=== PATIENT | male | born 1960 | race Caucasian/White ===

== ENCOUNTER 2017-01-21 06:13 | Inpatient (IN) | payer BC ==
[2017-01-21] MEDS ORDERED: LR 1,000 ML IV ONE (06:36)
[2017-01-21] MEDS ORDERED: LIDOCAINE 1% 5 ML SDV ID PRN (06:36)
[2017-01-21] MEDS ORDERED: fentaNYL 250 MCG/5 ML INJ ONE (06:59)
[2017-01-21] MEDS ORDERED: PROPOFOL 200 MG/20 ML VIAL ONE ×2 (07:00)
[2017-01-21] MEDS ORDERED: cefOXitin SODIUM 1 GM in D5W 50 ML IV ONE (07:00)
[2017-01-21] MEDS ORDERED: BUPIVACAINE 0.5% 30 ML SDV ONE (07:06)
[2017-01-21] MEDS ORDERED: MIDAZOLAM 2 MG/2 ML VIAL ONE (07:28)
[2017-01-21] MEDS ORDERED: ONDANSETRON 4 MG/2 ML VIAL IVP PRN (11:52)
[2017-01-21] MEDS ORDERED: HYDROmorphONE/DILAUDID 1 MG/ML SYR IVP PRN (11:53)
[2017-01-21] MEDS: cefOXitin SODIUM 1 GM in D5W 50 ML IV SCH ×2 (14:01→20:01)
[2017-01-21] MEDS: LR 1,000 ML IV SCH ×2 (14:01→20:02)
--- NOTE | 2017-01-21 16:37 | POSTOPPROG ---
Post Op Note Date of Operation: 01/21/17 Surgeon: Rian Melo Ammunition Specialist: Dr. Borges Pre-op Diagnosis: Diverticulitis Post-op Diagnosis: Same Procedure: Robotic LAR Inf/Abcess present in the surg proc area at time of surgery?: No EBL: Minimal
[2017-01-22] MEDS: cefOXitin SODIUM 1 GM in D5W 50 ML IV SCH ×2 (03:13→08:27)
[2017-01-22 05:06] LABS: HEMATOCRIT 38.1 % (40.0-51.0); HEMOGLOBIN 13.4 g/dL (13.7-17.5); MEAN CELL HEMOGLOBIN 31.8 pg (27.9-34.1); MEAN CELL HEMOGLOBIN CONCENTR. 35.2 g/dL (32.4-36.7); MEAN CELL VOLUME 90.5 fL (81.5-99.8); RED BLOOD CELL COUNT 4.21 10^6/uL (4.40-6.38); RED CELL DISTRIBUTION WIDTH 12.5 % (11.5-15.2)
[2017-01-22 05:27] LABS: ALANINE AMINOTRANSFERASE 100 IU/L (21-72); ALBUMIN 4.1 g/dL (3.5-5.0); ALKALINE PHOSPHATASE 86 IU/L (38-126); ANION GAP 12 mEq/L (8-16); ASPARTATE AMINOTRANSFERASE 104 IU/L (17-59); BILIRUBIN,TOTAL 1.5 mg/dL (0.1-1.4); CALCIUM 8.9 mg/dL (8.5-10.4); CARBON DIOXIDE 23 mEq/l (22-31); CHLORIDE 101 mEq/L (97-110); CREATININE 0.8 mg/dL (0.7-1.3); GLOMERULAR FILTRATION RATE > 60; GLUCOSE 96 mg/dL (70-100); SODIUM 136 mEq/L (134-144); TOTAL PROTEIN 6.9 g/dL (6.3-8.2)
[2017-01-22] MEDS: LR 1,000 ML IV SCH (08:27)
--- NOTE | 2017-01-22 08:58 | SOAPPROG ---
SOAP Progress Note Assessment/Plan: Assessment: s/p lap/robotic LAR, doing well. Advance diet. Monzon d/c'd. Plan: 01/22/17 08:57 Subjective: Alert, NAD RRR Abd soft, inc TTP Inc C/D/I Objective: Vital Signs Temp Pulse Resp BP Pulse Ox 36.8 C 97 17 120/79 93 01/22/17 07:27 01/22/17 07:27 01/22/17 07:27 01/22/17 07:27 01/22/17 07:27 Laboratory Results 01/22/17 04:10 01/22/17 04:10 01/21/17 01/22/17 01/23/17 05:59 05:59 05:59 Intake Total 3088 Output Total 3600 Balance -512 ICD10 Worksheet Patient Problems: Problems Problem Status Onset Diverticulitis Acute - ICD10 Problem Qualifiers (1) Diverticulitis Qualifiers: Diverticulitis site: D Diverticulitis bleeding: D Diverticulitis complication: D
--- NOTE | 2017-01-22 12:19 | GOP ---
[f rep st] OPERATIVE REPORT DATE OF OPERATION: 01/21/2017 SURGEON: Nicko Melo MD SUPERVISOR DOG LICENSE OFFICER SURGEON: Jensen Borges MD, whose presence was requested by surgeon and medically necessary for the safe and timely completion of this case. ANESTHESIA: General endotracheal anesthesia. ANESTHESIOLOGIST: Cristobal Amor MD PREOPERATIVE DIAGNOSIS: Diverticulitis with microperforation. POSTOPERATIVE DIAGNOSIS: Diverticulitis with microperforation. PROCEDURE PERFORMED: Laparoscopic/robotic low anterior resection. FINDINGS: The patient had a small area of adherence of the sigmoid colon to the anterior abdominal wall. No other significant lesions were noted. There were multiple diverticula. ESTIMATED BLOOD LOSS: 30 cc. COMPLICATIONS: None. DRAINS: None. INDICATIONS: A 56-year-old male with a history of diverticulitis. CT scan in the past had demonstrated microperforation. Risks and benefits of the procedure were discussed with the patient's family, their questions were answered, and they wished to proceed. DESCRIPTION OF PROCEDURE: The patient was in the supine position initially. After the induction of adequate general endotracheal anesthesia, the patient was moved to the modified lithotomy position. A Monzon catheter was placed and the patient was prepped and draped in the standard surgical fashion. Marcaine 0.5% was injected throughout the infraumbilical area and an 8-mm incision was made. The abdominal wall was elevated and a Veress needle was inserted. After noting proper pressures, the abdomen was insufflated with carbon dioxide. Three more ports were placed, including one 8-mm port in the suprapubic midline and one 13-mm port in the right lower quadrant. These were placed under direct vision after injecting 0.5% Marcaine for local anesthesia. Adhesions were taken down using blunt dissection and a Harmonic scalpel. The white line of Toldt was then divided. Dissection was carried up to the splenic flexure. Next, the splenic flexure was carefully mobilized using blunt dissection and the cautery using the vessel sealer. Good hemostasis was seen in this area. Attention was then turned to the ureter. The adhesions were taken down, and the colon was mobilized medially. The ureter was then identified. It was seen and preserved throughout the remainder of the case. Dissection was then carried down into the pelvis. Once again the sigmoid colon and rectum were mobilized medially using blunt dissection and the cautery. The site for transection was chosen distally. A window was opened in the mesentery using blunt dissection and the cautery. The colon wall was carefully exposed. Once an adequate window had been obtained, an the robotic BRANDI stapler with a blue load was passed. This was fired and the staple line was inspected. Good hemostasis was noted. No other lesions were noted. The mesentery was then divided using the vessel sealer. The site for proximal transection was chosen and the mesentery was continually divided up and to this point. This ensured excellent mobility of the colon. Next a colotomy was made using the vessel sealer device just distal to the proximal resection site. The 25 EEA anvil with the spike insert was inserted through the colotomy and milked proximally. Once the spike was passed the area chosen for transection proximally, this area was transected with the robotic stapler using the blue cartridge. The anvil was then pushed through the proximal site of resection. The spike was removed, and the proximal colon checked for twisting and tension. None was perceived and the 25 EEA stapler was mated to the anvil. The stapler was fired, and the area inspected. Good hemostasis and excellent staple line was noted. There area was then irrigated, and the proximal colon occluded. Air was insufflated via the rectum multiple times without evidence of bubbling. The whole area was then thoroughly irrigated and aspirated. The right lower quadrant incision was then enlarged with a #15 blade after injecting 0.5% Marcaine for local anesthesia. A muscle- splitting incision was used, and an Noah wound protector was placed. The specimen was then withdrawn through the right lower quadrant port site. The abdomen was thoroughly irrigated and aspirated. Good hemostasis was noted throughout. Wounds were thoroughly irrigated and the skin at all sites was closed with 4-0 Monocryl in a subcuticular stitch. The wounds were sterilely dressed. The patient was then returned to the supine position and extubated. The patient was then taken to the PACU in stable condition. /[id number]/MODL MTDD
[2017-01-22 23:39] VITALS: O2SAT 93
[2017-01-23] MEDS: LR 1,000 ML IV SCH (03:56)
[2017-01-23 07:55] VITALS: BP 148/96; RESP 14; TEMP 98.5
[2017-01-23] MEDS ORDERED: OXYCODONE/APAP 5/325 TAB PO PRN (08:10)
[2017-01-23 12:01] VITALS: PULSE 90
--- NOTE | 2017-01-23 12:33 | SOAPPROG ---
SOAP Progress Note Assessment/Plan: Assessment: s/p lap/robotic LAR, doing well. HLIV, advance diet. Poss d/c if claudine. Reviewed restrictions, signs/symptoms of concern. Plan: 01/22/17 08:57 01/23/17 12:32 Subjective: No complaints, claudine po well. + loose BM. No N/V. Amb well. Objective: Vital Signs Temp Pulse Resp BP Pulse Ox 36.9 C 90 14 148/96 H 93 01/23/17 12:00 01/23/17 12:00 01/23/17 12:00 01/23/17 12:00 01/23/17 12:00 Laboratory Results 01/22/17 04:10 01/22/17 04:10 01/22/17 01/23/17 01/24/17 05:59 05:59 05:59 Intake Total 3088 3740 Output Total 3600 3700 Balance -512 40 Alert, NAD RRR Abd soft, NTTP Inc C/D/I ICD10 Worksheet Patient Problems: Problems Problem Status Onset Diverticulitis Acute - ICD10 Problem Qualifiers (1) Diverticulitis Qualifiers: Diverticulitis site: D Diverticulitis bleeding: D Diverticulitis complication: D
== END 2017-01-23 13:15 | disposition home or self-care (01) | DRG 331 ==
LOC: F3N 06:13 → OBSVTOIN 11:53 → F3E 12:49
PROVIDERS: ADMIT Surgery; ATTEND Surgery
DX: K57.30 Diverticulosis of large intestine without perforation or abscess without bleeding (principal); Z86.19 Personal history of other infectious and parasitic diseases
CPT/HCPCS: J0697; J2250; J2704; J3010

== ENCOUNTER → 2018-01-28 | Outpatient (CLI) | payer BC | LOC: BRMIMAGING 14:56 | PROVIDERS: ATTEND Family Medicine | DX: M19.072 Primary osteoarthritis, left ankle and foot (principal) | CPT/HCPCS: 73630-PO ==

== ENCOUNTER → 2018-02-27 | Outpatient (CLI) | payer BC | LOC: BRMIMAGING 13:40 | PROVIDERS: ATTEND Physician Assistant | DX: S92.334D Nondisplaced fracture of third metatarsal bone, right foot, subsequent encounter for fracture with routine healing (principal); S92.344D Nondisplaced fracture of fourth metatarsal bone, right foot, subsequent encounter for fracture with routine healing | CPT/HCPCS: 73630-PO ==